=== PATIENT | male | born 1975 | race Hispanic/Latino ===

== ENCOUNTER 2022-07-19 09:50 | Outpatient (CLI) | payer SELFPAY ==
[2022-07-19 13:09] LABS: Anion Gap 15 mmol/L (10-20); BUN (Urea Nitrogen) 16 mg/dL (8.9-20.6); Calc. Creatinine Clearance 0 mL/min (70-130); Calcium 9.5 mg/dL (7.8-10.44); Carbon Dioxide 25 mmol/L (22-29); Chloride 100 mmol/L (98-107); Estimated GFR 110; Glucose 219 mg/dL (70-105); Potassium 4.6 mmol/L (3.5-5.1); Sodium 135 mmol/L (136-145)
== END 2022-07-19 09:51 | disposition home or self-care (01) ==
LOC: LABBT 09:50
PROVIDERS: ATTEND Orthopaedic Surgery
DX: Z01.818 Encounter for other preprocedural examination (principal); S82.52XA Displaced fracture of medial malleolus of left tibia, initial encounter for closed fracture; Z20.822 Contact with and (suspected) exposure to COVID-19
CPT/HCPCS: 80048; 87811; 93005; 93010

== ENCOUNTER 2022-07-21 06:30 | Day surgery (SDC) | payer SELFPAY ==
[2022-07-20 11:04] VITALS: BMI 33.0
[2022-07-21] MEDS ORDERED: Ropivacaine 0.5% HCl/PF (150 MG/30 ML VIAL) ONE (07:56)
[2022-07-21] MEDS ORDERED: Midazolam HCl 2 mg/2 ml Vial ONE (07:56)
[2022-07-21] MEDS ORDERED: Fentanyl 100 MCG/2 ML VIAL ONE ×3 (07:56→10:24)
[2022-07-21] MEDS ORDERED: HYDROmorphone 0.5 MG/0.5 ML SYRINGE ONE (08:34)
[2022-07-21] MEDS ORDERED: Bupivacaine PF 0.5% 30 ML VIAL ONE (08:36)
[2022-07-21] MEDS ORDERED: Sodium Chloride 0.9% 100 ML ONE (08:40)
[2022-07-21] MEDS ORDERED: CEFAZOLIN 2 GM VIAL ONE (08:40)
[2022-07-21] MEDS ORDERED: Ketorolac Tromethamine 30 MG/ML VIAL ONE (08:48)
[2022-07-21] MEDS ORDERED: Lidocaine 1% PF 5 ML VIAL ONE (08:48)
[2022-07-21] MEDS ORDERED: ePHEDrine 50 MG/ML VIAL ONE (08:48)
[2022-07-21] MEDS ORDERED: Dexamethasone 20 MG/5 ML VIAL ONE (08:48)
[2022-07-21] MEDS ORDERED: Ondansetron PF 4 MG/2 ML Vial ONE (08:48)
[2022-07-21] MEDS ORDERED: PROPOFOL 200 MG/20 ML VIAL ONE (08:48)
[2022-07-21] MEDS ORDERED: HYDROcodone/Acetaminophen 5/325 mg Tablet ONE ×2 (12:02→12:03)
== END 2022-07-21 13:27 | disposition home or self-care (01) ==
LOC: SDC 06:30
PROVIDERS: ATTEND Orthopaedic Surgery
PROC: 0QSH04Z Reposition Left Tibia with Internal Fixation Device, Open Approach (ICD-10-PCS; principal; 2022-07-21)
DX: S82.52XA Displaced fracture of medial malleolus of left tibia, initial encounter for closed fracture (principal); I10 Essential (primary) hypertension; E11.9 Type 2 diabetes mellitus without complications; Z79.84 Long term (current) use of oral hypoglycemic drugs; Z79.899 Other long term (current) drug therapy; W11.XXXA Fall on and from ladder, initial encounter
CPT/HCPCS: 76000; C1713; J0690; J1100; J1170; J1885; J2250; J2405; J2704; J2795; J3010; J3490; S0020